=== PATIENT | male | born 1945 | race Caucasian/White ===

== ENCOUNTER 2022-07-30 05:45 | Day surgery (SDC) | payer OTHER ==
[2022-07-25 11:38] LABS: BASOPHILS % (AUTO) 0.2 % (0-1); EOSINOPHILS % (AUTO) 0.7 % (0-6); LYMPHOCYTES # (AUTO) 0.9 X10'3 (1.1-4.8); LYMPHOCYTES % (AUTO) 13.4 % (21-51); MEAN CORPUSCULAR HEMOGLOBIN 19.8 PG (27.0-31.0); MEAN CORPUSCULAR VOLUME 61.9 FL (78-98); MEAN PLATELET VOLUME 8.3 FL (7.4-10.4); MONOCYTES # (AUTO) 0.5 X10'3 (0-0.9); MONOCYTES % (AUTO) 7.3 % (2-12); NEUTROPHILS # (AUTO) 5.2 X10'3 (1.8-7.7); NEUTROPHILS % (AUTO) 78.4 % (42-75); PRE OP HEMATOCRIT 37.8 % (42.0-52.0); PRE OP HEMOGLOBIN 12.1 g/dL (14.0-17.9); PRE OP PLATELET COUNT 186 X10'3 (140-440); RED BLOOD COUNT 6.11 X10'6 (4.70-6.10); RED CELL DISTRIBUTION WIDTH 16.8 % (11.5-14.5)
[2022-07-25 12:05] LABS: ALBUMIN 3.9 G/DL (3.4-5.0); ALBUMIN/GLOBULIN RATIO 1.3 (1.1-1.5); ALKALINE PHOSPHATASE 47 IU/L (46-116); BLOOD UREA NITROGEN 14 MG/DL (7-18); BUN/CREATININE RATIO 13.2 (10.0-20.0); CALCIUM 8.8 MG/DL (8.5-10.1); CHLORIDE 108 MMOL/L (99-107); CREATININE 1.06 MG/DL (0.60-1.10); PRE OP ALT 20 U/L (30-65); PRE OP ANION GAP 7 (8-16); PRE OP AST 27 U/L (10-37); PRE OP BILIRUB, TOTAL 0.9 MG/DL (0.0-1.0); PRE OP GLUCOSE 86 MG/DL (70-104); PRE OP POTASSIUM 4.2 MMOL/L (3.4-5.1); PRE OP SODIUM 144 MMOL/L (135-145); TOTAL CARBON DIOXIDE 29.4 MMOL/L (24-32); eGFR 68 ML/MIN
[2022-07-25 12:07] LABS: PLATELET ESTIMATE NORMAL
[2022-07-25 12:08] LABS: ANISOCYTOSIS 1+; ELLIPTOCYTES 1+; MICROCYTOSIS 2+; POIKILOCYTOSIS 2+
[2022-07-30] VITALS (10 sets, daily range): BP systolic 132–185; BP diastolic 67–87
[~2022-07-30] VITALS: Ht 180.3 cm; Wt 81.7 kg
[~2022-07-30 05:45] MED LIST: AMLO5TAB PO; LISI20TA28 PO; MULT-1085 PO; cefazolin 2gm/D5W 100mL 100 ML IV ONE; famotidine 20mg tablet PO ONE; ringers solution, lacted 1,000 ML IV SCH
[2022-07-30] MEDS ORDERED: bacitracin 15gm ointment TP ONE (06:38)
[2022-07-30] MEDS ORDERED: BUPIVAcaine 0.5% inj/PF 30 ML ONE (06:38)
[2022-07-30] MEDS ORDERED: midazolam 1 mg/ML 2ml injection ONE (08:05)
[2022-07-30] MEDS ORDERED: fentaNYL/PF 50MCG/1 ML 2ML syringe ONE (08:05)
[2022-07-30] MEDS ORDERED: propofol inj 20 ML IV ONE (08:10)
[2022-07-30] MEDS ORDERED: LIDOcaine 2% (20mg/ml) 5ml vial ONE (08:10)
[2022-07-30] MEDS ORDERED: acetaminophen 1,000mg/100ml IV 100 ML IV ONE (08:17)
[2022-07-30] MEDS ORDERED: BUPIVAcaine 0.5% inj/PF 30 ml vial IJ ONE (08:25)
[2022-07-30] MEDS ORDERED: ringers solution, lacted 1,000 ML IV SCH (08:35)
[2022-07-30] MEDS ORDERED: morphine 2 MG/ML inj. syringe IV PRN (08:35)
[2022-07-30] MEDS ORDERED: meperidine/PF 25mg/ml syringe IV PRN ×2 (08:35)
[2022-07-30] MEDS ORDERED: proCHLORperazine 10 MG/2 ml inj IV PRN (08:35)
[2022-07-30] MEDS ORDERED: morphine 4 MG/ML inj SYRINge IV PRN (08:35)
[2022-07-30] MEDS ORDERED: ondansetron/PF 4mg/2ml inj IV PRN (08:35)
[2022-07-30] MEDS ORDERED: dexamethasone sod phosphate 4mg/ml inj. ONE (08:53)
--- NOTE | 2022-07-30 09:05 | NUR ---
Received from OR via [facility], accompanied by Anesthesiologist, DR. LEONARD-report given. PATIENT WAKING UP, DENIES PAIN, V/S WNL, CSM INTACT, 20G PIV TO LEFT ARM PATENT, DRESG TO RIGHT GROIN-CDI
[2022-07-30] MEDS: meperidine/PF 25mg/ml syringe IV PRN ×2 (09:56→10:08)
[2022-07-30] MEDS ORDERED: HYDROcodone/acetaminophen 5mg/325mg tablet PO ONE (10:05)
--- NOTE | 2022-07-30 10:35 | NUR ---
PT UP AND DRESSED WAS ABLE TO VID W/O DIFFICULTY, PAIN MANAGEABLE-GIVEN 1 NORCO, DRESG TO RIGHT GROIN STILL-CDI, VSS, PIV D/CD, GIVEN D/C INSTRUCTIONS-ALL QUESTIONS ANSWERED, TAKEN WITH ALL BELONGINGS TO VEHICLE FOR TRANSPORT HOME.
== END 2022-07-30 10:35 | disposition home or self-care (01) ==
LOC: PAS 05:45
PROVIDERS: ATTEND Surgery
DX: K40.90 Unilateral inguinal hernia, without obstruction or gangrene, not specified as recurrent (principal); D17.6 Benign lipomatous neoplasm of spermatic cord; I10 Essential (primary) hypertension; F32.A Depression, unspecified; D56.3 Thalassemia minor; H40.9 Unspecified glaucoma; K21.9 Gastro-esophageal reflux disease without esophagitis; Z79.899 Other long term (current) drug therapy; Z98.890 Other specified postprocedural states
CPT/HCPCS: 49505; 80053; 82948; 85025; C1781; J0131; J0690; J1100; J2175; J2250; J2704; J3010; J3490; J7030; J7120; S0020; Z7506; Z7508; Z7512; 85008; A4215; A4618; A6449; A7000